=== PATIENT | male | born 1995 | race African-American/Black ===

== ENCOUNTER 2017-02-19 18:44 | Emergency (ER) | payer MEDICAID ==
[~2017-02-19] VITALS: Ht 170.2 cm; Wt 94.7 kg
[2017-02-19 18:49] VITALS: BP 156/97
[2017-02-19] MEDS ORDERED: PLEASE ENTER ALLERGIES MC SCH ×2 (20:00)
[2017-02-19] MEDS ORDERED: KETOROLAC 30 MG/1 ML IM ONE (20:00)
[2017-02-19] MEDS ORDERED: HYDROcodone/APAP 5/325 TABLET PO ONE (20:00)
[2017-02-19] MEDS ORDERED: DIAZEPAM 5 MG TABLET PO ONE (20:00)
[2017-02-19] MEDS ORDERED: HYDROcodone/APAP 5/325 TABLET ONE (20:21)
[2017-02-19] MEDS ORDERED: DIAZEPAM 5 MG TABLET ONE (20:22)
[2017-02-19] MEDS ORDERED: KETOROLAC 30 MG/1 ML ONE ×2 (20:22→20:23)
== END 2017-02-19 21:01 | disposition home or self-care (01) ==
LOC: ED 20:20
DX: S16.1XXA Strain of muscle, fascia and tendon at neck level, initial encounter (principal); S29.012A Strain of muscle and tendon of back wall of thorax, initial encounter; F32.0 Major depressive disorder, single episode, mild; X50.9XXA Other and unspecified overexertion or strenuous movements or postures, initial encounter; Y93.89 Activity, other specified; Y92.89 Other specified places as the place of occurrence of the external cause; Y99.8 Other external cause status
CPT/HCPCS: 72050; 72072; 96372; 99284; J1885